=== PATIENT | male | born 1985 | race Caucasian/White ===

== ENCOUNTER 2020-09-27 09:19 | Emergency (ER) | payer MEDICAID ==
[~2020-09-27] VITALS: Ht 165.1 cm; Wt 86.2 kg
--- NOTE | 2020-09-27 09:19 | NUR ---
Patient transferred to bed 11 via wheelchair by tech. RN evaluating the patient at bedside.
[2020-09-27 09:22] VITALS: BP 165/95
[2020-09-27] MEDS ORDERED: LIDOCAINE 2% 1000 MG/50 ML VIAL INJ ONE (09:25)
--- NOTE | 2020-09-27 09:34 | NUR ---
35 Y/O MALE WITH LEFT KNEE LACERATION, OCCURRED AT WORK, PATIENT STATES SAW SLICED LEFT KNEE, DOES NOT RECALL LAST TB SHOT. PAIN IS 5/10 AT THIS TIME, MINIMAL BLEEDING NOTED AT THIS TIME. CMS+. NO SWELLING NOTED.
--- NOTE | 2020-09-27 09:38 | NUR ---
PATIENTS WOUND WAS CLEANED AND IRRIGATED WITH NORMAL SALINE AND BETADINE. SUTURE SET UP AT BEDSIDE. ERMD NOTIFIED.
--- NOTE | 2020-09-27 09:41 | NUR ---
Dr. Vazquez at bedside for laceration repair.
[2020-09-27] MEDS ORDERED: BACITRACIN OINT 500 UNITS/GM PKT TP ONE ×2 (10:29→10:30)
--- NOTE | 2020-09-27 10:55 | NUR ---
bacitracin was applied on left knee wound of pt. pt's knee was wrapped with nonadherent dressing, gauze roll and kandace wrapped. ermd notified
[2020-09-27] MEDS ORDERED: MUPI2CRE22 TP (11:14)
[2020-09-27] MEDS ORDERED: AMOX1TAB8 PO (11:14)
[2020-09-27] MEDS ORDERED: ACET-10509 PO (11:14)
[2020-09-27] MEDS ORDERED: IBUP-2213 PO (11:14)
[2020-09-27 11:28] VITALS: BP 165/95
--- NOTE | 2020-09-27 11:29 | NUR ---
Patient discharged with v/s stable. Written and verbal after care instructions given and explained. Patient alert, oriented and verbalized understanding of instructions. Wheel Chair Assisted with steady gait. All questions addressed prior to discharge. ID band removed. Patient advised to follow up with PMD. Rx of ACETAMINOPHEN, AMOXICILLIN, IBUPROFEN, MUPIROCIN given. Patient educated on indication of medication including possible reaction and side effects. Opportunity to ask questions provided and answered.
== END 2020-09-27 11:29 | disposition home or self-care (01) ==
LOC: MED 09:19
DX: S71.112A Laceration without foreign body, left thigh, initial encounter (principal); W45.8XXA Other foreign body or object entering through skin, initial encounter; Y93.89 Activity, other specified; Y92.89 Other specified places as the place of occurrence of the external cause; Y99.8 Other external cause status
CPT/HCPCS: 12002; 90471; 90715; 99283; J2001

== ENCOUNTER 2020-09-30 14:11 | Emergency (ER) | payer MEDICAID ==
[~2020-09-30] VITALS: Ht 165.1 cm; Wt 86.2 kg
[~2020-09-30 14:11] MED LIST: ACET-10509 PO; AMOX1TAB8 PO; IBUP-2213 PO; MUPI2CRE22 TP
[2020-09-30 14:27] VITALS: BP 110/62
[2020-09-30 16:05] VITALS: BP 110/62
== END 2020-09-30 16:07 | disposition home or self-care (01) ==
LOC: MED 14:11
DX: M79.652 Pain in left thigh (principal); Z48.00 Encounter for change or removal of nonsurgical wound dressing; Z79.899 Other long term (current) drug therapy
CPT/HCPCS: 99281

== ENCOUNTER 2020-10-08 10:36 | Emergency (ER) | payer MEDICAID ==
[~2020-10-08] VITALS: Ht 165.1 cm; Wt 88.5 kg
[2020-10-08 10:40] VITALS: BP 120/73
[2020-10-08 11:49] VITALS: BP 120/73
== END 2020-10-08 11:50 | disposition home or self-care (01) ==
LOC: MED 10:36
DX: S81.812D Laceration without foreign body, left lower leg, subsequent encounter (principal); Z79.899 Other long term (current) drug therapy; X58.XXXD Exposure to other specified factors, subsequent encounter
CPT/HCPCS: 99281